=== PATIENT | male | born 1990 | race Caucasian/White ===

== ENCOUNTER 2018-11-03 11:39 | Emergency (ER) | payer BC ==
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
[2018-11-03] MEDS ORDERED: HYDROmorphone 1 MG/ML Syringe IM ONE (12:09)
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
== END 2018-11-03 14:07 | disposition home or self-care (01) ==
LOC: JP.ED 11:39
DX: M54.5 Low back pain (principal); F17.210 Nicotine dependence, cigarettes, uncomplicated; Z79.899 Other long term (current) drug therapy
CPT/HCPCS: 72100; 96372; 99283; J1170

== ENCOUNTER 2024-12-14 08:45 | Emergency (ER) | payer BC ==
[2024-12-14 10:00] LABS: APPEARANCE,URINE SLIGHTLY CLOUDY (CLEAR)
[2024-12-14 10:02] LABS: SQUAMOUS EPITHELIAL CELLS,UR NOT SEEN /HPF
== END 2024-12-14 10:50 | disposition home or self-care (01) ==
LOC: JP.ED 08:45
DX: N39.0 Urinary tract infection, site not specified (principal)
CPT/HCPCS: 81001; 87086; 99284